=== PATIENT | female | born 1995 | race African-American/Black ===

== ENCOUNTER 2016-09-16 00:25 | Emergency (ER) ==
[2016-09-16 00:35] VITALS: BP 120/66
[2016-09-16] MEDS ORDERED: PREDNISONE PO ONE (01:04)
--- NOTE | 2016-09-16 01:09 | PROVIDER DOCUMENTATION ---
HPI-Rash/Wound/ReCheck - General Chief Complaint: Rash Stated Complaint: ALLERGIC REACTION Time Seen by Provider: 09/16/16 00:41 Source: patient Allergies/Adverse Reactions: Allergies Allergy/AdvReac Type Severity Reaction Status Date / Time No Known Allergies Allergy Verified 09/16/16 00:39 Home Medications: Home Medication List Medication Instructions Recorded Confirmed Last Taken Type Clotrimazole/Betamethasone Dip 45 gm TP BID #1 cream..g. 09/16/16 Unknown Rx [Lotrisone Cream] - History of Present Illness-Dermatology Nature of Presenting Problem: Pt is a 21 y/o F with a rash between her fingers and toes for 2 weeks. . Pt states she has to wear glove and boots at her job at [employer]. Location: reports: feet, hands Quality: reports: itchy Severity: reports: moderate Onset/Duration: reports: other (2 weeks) Timing: reports: still present, getting worse Identifiable cause?: Yes Locality of Occurance: Work Similar Symptoms Previously?: No Recently seen or treated by another doctor?: No Review of Systems - Adult - REVIEW OF SYSTEMS - ADULT Constitutional: denies: chills, fever Eyes: reports: no symptoms reported Ears, Nose, Mouth & Throat: reports: no symptoms reported Cardiovascular: reports: no symptoms reported Respiratory: denies: cough, shortness of breath, wheezing Gastrointestinal: denies: nausea, vomiting Genitourinary: denies: dysuria, discharge, hesitency Musculoskeletal: reports: no symptoms reported Integumentary: reports: rash. denies: hives Neurological: reports: no symptoms reported Psychiatric: reports: no symptoms reported Endocrine: reports: no symptoms reported Hematologic/Lymphatic: reports: no symptoms reported Allergic/Immunologic: reports: no symptoms reported All Other Systems: Reviewed and Negative Past History - Adult - PAST MEDICAL HISTORY-ADULT Review of Records: reports: Old Records Reviewed, Nursing Assessment Review, Medications Reviewed Major Childhood Illnesses: reports: denies history - SOCIAL HISTORY Smoking: non-smoker Living Situation: family Physical Exam-General - PHYSICAL EXAM-ADULT Initial Vital Signs Reviewed: Yes - CONSTITUTIONAL General Appearance: appears well, alert, no apparent distress - EYES Eyes: PERRL/EOMI, pink conjunctivae - HEAD, EARS, NOSE, MOUTH & THROAT HENMT: moist mucous membranes, normal ENT inspection, TMs normal, pharynx normal - NECK Neck: non-tender, full range of motion, supple, normal inspection - RESPIRATORY Respiratory: lungs clear, normal breath sounds, no pleuratic chest pain, no respiratory distress, no accessory muscle use - CARDIOVASCULAR Cardiovascular: normal peripheral pulses, regular rate, rhythm - GASTROINTESTINAL (ABDOMEN) Abdominal Exam: normal bowel sounds, non tender, soft - MUSCULOSKELETAL Back Exam: normal inspection, no CVA tenderness, no vertebral tenderness Extremity: normal range of motion, non-tender, normal gait, normal inspection - SKIN Integumentary: normal color, normal turgor, warm/dry, rash (between in finger and toe webbing.) - NEUROLOGIC Neurologic: grossly normal, no motor/sensory deficits - PSYCHIATRIC Psych/Mental Status: normal mood/affect, normal thought content, normal thought process, oriented x 3 Progress - PLAN OF CARE/RESULTS Progress/Plan/Lab Results: Orders Category Date Time Status Prednisone Med 09/16/16 01:04 Discontinued 20 mg PO NOW ONE Vital Signs Temp Pulse Resp BP Pulse Ox 09/16/16 00:33 97.9 F 63 16 120/66 100 No Known Allergies Allergy (Verified 09/16/16 00:39) Clotrimazole/Betamethasone Dip [Lotrisone Cream] 45 gm TP BID #1 cream..g. 09/16 Departure - Departure Time of Disposition Order: 01:04 DIAGNOSIS: Skin induration Disposition: HOME 01 Certified Medical Emergency: Emergent Condition: Stable Additional Instructions: Follow up with PCP ED Follow Up Instructions: You have been treated by a care provider in the Emergency Department. These instructions are being provided to you so you can have an understanding of how to care for yourself upon discharge. Upon discharge from the Emergency Department, you are responsible for making arrangements for follow-up care by a physician of your choice. Take all prescribed medications as directed. Return to the Emergency Department immediately for any new or worsening symptoms. You may call the Physician Referral phone number at [phone] to obtain a list of Physicians who are taking new patients. Attestation - Scribe Verification/Attestation Scribe:: Ryland Vaughn Acting as Scribe for:: Luis Jessica Scribe documention review:: This chart was documented by a scribe and accurately reflects the service the provider performed and the decisions made by the provider.
== END 2016-09-16 01:24 | disposition home or self-care (01) ==
LOC: ED 00:25
DX: R23.4 Changes in skin texture (principal); R21 Rash and other nonspecific skin eruption; L29.9 Pruritus, unspecified
CPT/HCPCS: J7512